=== PATIENT | female | born 1985 | race Caucasian/White ===

== ENCOUNTER → 2018-10-16 10:08 | Outpatient (CLI) | payer OTHER, SELFPAY | PROVIDERS: PCP Family Medicine; Visit Provider Nurse Practitioner Family | DX: I48.91 Unspecified atrial fibrillation (principal) | CPT/HCPCS: 93270 ==

== ENCOUNTER → 2018-10-24 08:26 | Outpatient (CLI) | payer OTHER, SELFPAY ==
--- NOTE | 2018-10-24 08:28 | CA_ITS ---
PROCEDURE: 2-D M-mode and color Doppler study INDICATIONS FOR THE TEST: Chest pain+ COPD Heart Murmur Tobacco Smoking+ Palpitations+ Fatigue Syncope Edema Hypertension Diabetes Mellitus Rheumatic Fever SOB+HOUSER Obesity Hyperlipidemia Family History HD Additional History TACHYCARDIA, PVCS PATIENT INFORMATION HEIGHT:68 WEIGHT:230 GENDER: Female B/P:131/46 2-D/M-MODE INTERPRETATION: 2-D MEASUREMENTS OBSERVED VALUES IN CMS Right Ventricular Dimension (RVDd) 2.3 Interventricular Septum (Thickness)(IVsd) 1.0 Left Ventricular Internal Dimensions(LVIDd) 5.2 Left Ventricular Posterior Wall (Thickness)(LVPWd) 0.8 Aortic Root 3.1 Aortic Cusp Separation 2.1 Left Atrial Dimensions (LAD) 4.0 2D 1. Left atrium is upper limit of the normal size, left ventricle is normal size, visually estimated ejection fraction 55% with no regional wall motion abnormality, septum has sigmoid configuration. 2. The right atrium and right ventricle are normal size and contractility. 3. The aortic valve is minimally thickened and fibrosed. 4. The mitral and tricuspid valvular grossly normal. 5. The pulmonic valve is poorly visualized. 6. No significant pericardial effusion noted. DOPPLER INTERROGATION: Doppler interrogation of the aortic, mitral and tricuspid valvular presence of mild mitral and tricuspid regurgitation, tricuspid regurgitation jet velocity is inadequate for calculation of the right ventricular systolic pressure, diastolic parameters are inconclusive. CONCLUSION: 1. Normal left ventricular size, preserved left ventricular systolic function, visually estimated ejection fraction 55% with no regional wall motion abnormality. 2. Mild mitral and tricuspid regurgitation 3. No significant pericardial effusion noted.
== END ==
PROVIDERS: PCP Family Medicine; Visit Provider Nurse Practitioner Family
DX: R00.2 Palpitations (principal); R94.31 Abnormal electrocardiogram [ECG] [EKG]
CPT/HCPCS: 93017; 93306

== ENCOUNTER → 2018-11-21 09:08 | Outpatient (CLI) | payer OTHER, SELFPAY ==
[2018-11-21 09:25] LABS: Basophils # 0.1 K/mm3 (0-0.2); Basophils % 0.6 % (0.1-2.0); Eosinophils # 0.2 K/mm3 (0.0-0.4); Eosinophils % 2.3 % (0.1-12.0); Hemoglobin 12.4 g/dL (12.2-16.2); Lymphocytes # 1.9 K/mm3 (0.7-4.5); Lymphocytes % 24.9 % (10-50); Mean Corpuscular HGB Conc 30.9 g/dL (31.8-35.4); Mean Corpuscular Hemoglobin 27.3 pg (27.0-31.2); Mean Corpuscular Volume 88.3 fl (81-99); Mean Platelet Volume 6.6 fl (7.4-10.4); Monocytes # 0.4 K/mm3 (0.1-1.0); Monocytes % 5.6 % (1.7-9.3); Neutrophils # 5.2 K/mm3 (1.8-7.8); Neutrophils % 66.6 % (37.0-80.0); Platelet Count 431 K/mm3 (142-424); Red Blood Count 4.54 M/mm3 (4.20-5.40); Red Cell Distribution Width 13.3 % (11.5-17.5); White Blood Count 7.8 K/mm3 (4.8-10.8)
[2018-11-21 12:27] LABS: Anion Gap 12.5 mEq/L (5-15); Blood Urea Nitrogen 10 mg/dL (7-18); Calcium 9.1 mg/dL (8.5-10.1); Carbon Dioxide 29 mmol/L (21.0-32.0); Chloride 103 mmol/L (98-107); Creatinine,Serum 0.67 mg/dL (0.55-1.02); Estimated Glomerular Filt Rate 100 ml/min (>60); Free T4 (Free Thyroxine) 1.03 ng/dl (0.76-1.46); GFR (African American) 121 ML/MIN (>60); Glucose 91 mg/dL (74-106); Magnesium 1.8 mg/dL (1.4-2.2); Potassium 4.5 mmoL/L (3.5-5.1); Sodium 140 mmol/L (136-145); Thyroid Stimulating Hormone 2.26 uIU/ml (0.358-3.740)
== END ==
PROVIDERS: Visit Provider Physician Assistant
DX: R00.2 Palpitations (principal); Z82.49 Family history of ischemic heart disease and other diseases of the circulatory system; F17.200 Nicotine dependence, unspecified, uncomplicated
CPT/HCPCS: 36415; 80048; 83735; 84439; 84443; 85025

== ENCOUNTER 2020-12-30 18:08 | Emergency (ER) | payer OTHER, SELFPAY ==
[2020-12-30 18:08] VITALS: BP 153/76; PULSE 81; RESP 20; TEMP 36.8; O2SAT 98; BMI 36.0
--- NOTE | 2020-12-30 18:13 | ECG_ITS ---
APPROVED REPORT Exam: Resting ECG HR:97 bpm ECG Measurements Heart Rate 97 AXES NJ 164 P 57 QRSd 98 QRS 59 QT 340 T 45 QTc 431 Conclusion Sinus rhythm with premature atrial complexes Possible Left atrial enlargement Borderline ECG Electronically signed by : Prem Saul, 01/01/2021 14:30:56
--- NOTE | 2020-12-30 18:13 | XR_ITS ---
PROCEDURE INFORMATION: Exam: XR Chest Exam date and time: 12/30/2020 6:13 PM Age: 35 years old Clinical indication: Sternal or substernal pain; Patient HX: Chest pain TECHNIQUE: Imaging protocol: XR of the chest. Views: 2 views. COMPARISON: No relevant prior studies available. FINDINGS: Lungs: No acute pulmonary findings. No pulmonary consolidation. Lung volumes within normal limits. Pleural spaces: Unremarkable. No significant pleural effusion. No pneumothorax. Heart/Mediastinum: The cardiac silhouette is within upper limits normal. Bones/joints: Minimal spinal degenerative changes. The sternum is not well visualized on the lateral view due to overlying soft tissue shadows from the upper extremities, but appears grossly intact as visualized. IMPRESSION: No acute findings.
--- NOTE | 2020-12-30 18:14 | [facility].EDGENADL ---
ED Disposition Clinical Impression: Palpitations, Atypical chest pain Disposition: Home, Self-Care Condition on Discharge: Fair Instructions: DI for Atypical Chest Pain, DI for Palpitations Additional Instructions: You have been evaluated for atypical chest pain and palpitations. Please follow-up with Dr. Hanks when available. Follow-up with your primary care doctor within 24 to 48 hours. Return to the emergency department at once for any new or worsening symptoms. Referrals: Anna Manjarrez MD [Primary Care Provider] - Time of Disposition: 19:35 - Critical Care Critical Care Time: No Attestation: On , the high probability of a clinically significant, sudden or life threatening deterioration of the following system(s) required my full and direct attention, intervention and personal management. The time I documented below is in addition to time spent performing reported procedures but includes the following listed in this critical care notation. Medical Decision Making - Medical Records Medical records reviewed: Yes: I reviewed the patient's medical records. - Sunil Inquiry Pt receiving controlled substance: No Vital Signs: 12/30/20 18:08 Temperature 98.3 F Temperature Source Oral Pulse Rate [Right Radial] 81 Respiratory Rate 20 Blood Pressure [Right Arm] 153/76 H Blood Pressure Mean [Right Arm] 101 Blood Pressure Source [Right Arm] Automatic Cuff Blood Pressure Position [Right Arm] Sitting 02 Sat by Pulse Oximetry 98 Oxygen Delivery Method Room Air - Lab Data Lab Results 12/30/20 18:10: WBC 13.6 H, RBC 4.62, Hgb 13.8, Hct 40.2, MCV 87.0, MCH 29.8, MCHC 34.2, RDW 14.2, Plt Count 422, MPV 7.5, Neut % (Auto) 61.2, Lymph % (Auto) 32.2, [place] % (Auto) 4.2, Eos % (Auto) 1.7, Baso % (Auto) 0.8, Neut # (Auto) 8.3 H, Lymph # (Auto) 4.4, [place] # (Auto) 0.6, Eos # (Auto) 0.2, Baso # (Auto) 0.1 12/30/20 18:10: D-Dimer 0.56 H 12/30/20 18:10: Sodium 141, Potassium 3.5, Chloride 106, Carbon Dioxide 26, Anion Gap 12.5, BUN 9, Creatinine 0.80, Estimated Creat Clear 159, Estimated GFR 81, Est GFR ( Amer) 98, Glucose 100, Calcium 9.4, Troponin I < 0.01 Result diagrams: 12/30/20 18:10 12/30/20 18:10 Orders (Tests/Meds): ED MEDICATIONS Discontinued Medications Generic Name Dose Route Start Last Admin Trade Name Radha PRN Reason Stop Dose Admin Aspirin 324 mg 12/30/20 18:13 12/30/20 18:23 Aspirin 81mg Chewable Tablet PO 12/30/20 18:14 324 mg ONCE ONE Administration Iopamidol 70 ml 12/30/20 19:27 12/30/20 19:28 Iopamidol-370 (76%);100ml Bottle IV 12/30/20 19:28 70 ml ONCE ONE Administration Sodium Chloride 50 ml 12/30/20 19:27 12/30/20 19:27 0.9 % Sodium Chloride 50 Ml Vial IV 12/30/20 19:28 50 ml ONCE ONE Administration Sodium Chloride 10 ml 12/30/20 19:27 12/30/20 19:28 Sodium Chloride 0.9% 10ml Syr (Rad Only) IV 12/30/20 19:28 10 ml ONCE ONE Administration ORDERS Category Date Time Status Troponin I Q3H Lab 12/30/20 21:15 Ordered Troponin I Q3H Lab 12/31/20 00:15 Ordered ECG Request by /Lyssa Stat Y 12/30/20 18:13 Ordered - ECG Data Tracing #1 Sinus rhythm with premature atrial complexes. Rate of 97 bpm. QRS 98, QTc 431. No ST segment elevation. - MELONY Score for Non-Stemi Age of Patient: 30-39 years old Heart Rate: 70-89 bpm Systolic Blood Pressure: 140-159 mmHg Serum Creatinine: 0.40-0.79 mg/dl CHF [place] Class: I-No CHF Other Risk Factors: None Non-Stemi Risk Score: 45 Medical Decision Narrative: In summary this is a 85-year-old female presenting to the emergency department with chest tightness and palpitations. Patient clinically stable on arrival. Vital signs within normal limits. Borderline tachycardic at 97 bpm. Concern for cardiac arrhythmia, atypical ACS. Will obtain CBC, CMP, chest x-ray, EKG, turn profile, D-dimer. Patient given aspirin. EKG shows sinus rhythm with occasional premature atrial complexe
[2020-12-30 18:16] VITALS: BMI 36.0
--- NOTE | 2020-12-30 18:27 | PC.NURSE ---
GONE FOR CXR
[2020-12-30 18:34] LABS: Basophils # 0.1 K/mm3 (0-0.2); Basophils % 0.8 % (0.1-2.0); Eosinophils # 0.2 K/mm3 (0.0-0.4); Eosinophils % 1.7 % (0.1-12.0); Hematocrit 40.2 % (37.0-47.0); Hemoglobin 13.8 g/dL (12.2-16.2); Lymphocytes # 4.4 K/mm3 (0.7-4.5); Lymphocytes % 32.2 % (10-50); Mean Corpuscular HGB Conc 34.2 g/dL (31.8-35.4); Mean Corpuscular Hemoglobin 29.8 pg (27.0-31.2); Mean Platelet Volume 7.5 fl (7.4-10.4); Monocytes # 0.6 K/mm3 (0.1-1.0); Monocytes % 4.2 % (1.7-9.3); Neutrophils # 8.3 K/mm3 (1.8-7.8); Neutrophils % 61.2 % (37.0-80.0); Platelet Count 422 K/mm3 (142-424); Red Blood Count 4.62 M/mm3 (4.20-5.40); Red Cell Distribution Width 14.2 % (11.5-17.5); White Blood Count 13.6 K/mm3 (4.8-10.8)
[2020-12-30 18:36] LABS: Chloride 106 mmol/L (98-107)
[2020-12-30 18:37] LABS: Potassium 3.5 mmoL/L (3.5-5.1); Sodium 141 mmol/L (136-145)
[2020-12-30 18:39] LABS: Blood Urea Nitrogen 9 mg/dl (7-17); Creatinine Clearance Estimated 159 mL/min (50-200); Estimated Glomerular Filt Rate 81 ml/min (>60); GFR (African American) 98 ML/MIN (>60)
[2020-12-30 18:40] LABS: Anion Gap 12.5 mEq/L (5-15); Calcium 9.4 mg/dl (8.4-10.2); Carbon Dioxide 26 mmol/L (22.0-30.0); Glucose 100 mg/dl (74-100)
[2020-12-30 18:45] LABS: D-Dimer 0.56 ug/mL (0.0-0.5)
[2020-12-30 18:54] LABS: Troponin I < 0.01 ng/ml (0.00-0.034)
--- NOTE | 2020-12-30 19:06 | CT_ITS ---
PROCEDURE INFORMATION: Exam: CTA Chest With Contrast Exam date and time: 12/30/2020 7:06 PM Age: 35 years old Clinical indication: Shortness of breath; Additional info: Short of breath, elevated d-dimer TECHNIQUE: Imaging protocol: Computed tomographic angiography of the chest with contrast. 3D rendering (Not supervised by radiologist): MIP and/or 3D reconstructed images were created by the technologist. Radiation optimization: All CT scans at this facility use at least one of these dose optimization techniques: automated exposure control; mA and/or kV adjustment per patient size (includes targeted exams where dose is matched to clinical indication); or iterative reconstruction. Contrast material: ISOVUE 370; Contrast volume: 70 ml; Contrast route: INTRAVENOUS (IV); COMPARISON: CR XR CHEST 2V 12/30/2020 6:15 PM FINDINGS: Pulmonary arteries: No acute pulmonary emboli. Aorta: No thoracic aortic aneurysm. No evidence of dissection in the chest. Note that the aorta is suboptimally enhanced, on this PE protocol exam. Lungs: No acute findings. There is no pulmonary consolidation. No masses. Minimal dependent atelectasis in the posterior and lower lungs. Mild subsegmental atelectasis or scarring in the medial segment of the right middle lobe. Pleural spaces: Unremarkable. No significant pleural effusion. No pneumothorax. Heart: Cardiac size within upper limits normal. Trace mediastinal fluid, no significant pericardial effusion. RV/LV ratio within normal limits, approximate 0.9. No reflux of contrast into the IVC or hepatic veins to suggest right heart strain. Lymph nodes: Mild reticulonodular soft tissue opacities in the anterior superior mediastinum, probably mild thymic remnant tissue, or possibly shotty adenopathy. No significantly enlarged lymph nodes, by short axis criteria. Gallbladder and bile ducts: Cholelithiasis, multiple rim calcified gallstones within a partially contracted gallbladder, incompletely visualized. Bones/joints: Mild spinal degenerative changes, multilevel disc narrowing and minimal spondylosis. Sternum appears intact.There are no lytic skeletal lesions seen. No definite acute fractures Soft tissues: There are no soft tissue masses or fluid collections. IMPRESSION: 1. No acute pulmonary emboli. 2. No thoracic aortic aneurysm or dissection in the chest. 3. Cholelithiasis, multiple rim calcified gallstones within a partially contracted gallbladder. 4. No acute cardiopulmonary findings; minimal pulmonary atelectasis. No focal consolidation or mass. 5. Additional nonemergency and chronic findings as above.
--- NOTE | 2020-12-30 20:45 | PC.NURSE ---
housecleaner floor at beside obtaining troponin lab
[2020-12-30 21:26] LABS: Troponin I < 0.01 ng/ml (0.00-0.034)
[2020-12-30 21:50] VITALS: BP 123/71; PULSE 75; RESP 18; TEMP 36.7; O2SAT 96
== END 2020-12-30 21:56 | disposition home or self-care (01) ==
PROVIDERS: Emergency Provider Emergency Medicine; PCP Nurse Practitioner
DX: R07.89 Other chest pain (principal); F41.9 Anxiety disorder, unspecified; F17.210 Nicotine dependence, cigarettes, uncomplicated
CPT/HCPCS: 71046; 71275; 80048; 84484; 85025; 85378; 93005; 99284; Q9967